=== PATIENT | male | born 1955 | race Caucasian/White ===

== ENCOUNTER 2020-10-10 00:49 | Emergency (ER) | payer BC, MEDICARE ==
[2020-10-10 00:54] VITALS: TEMP 97.7
[2020-10-10] MEDS ORDERED: SODIUM CHLORIDE 0.9% 1,000 ML IV STA (01:04)
[2020-10-10] MEDS ORDERED: ONDANSETRON 4 MG/2 ML VIAL IVP STA (01:04)
--- NOTE | 2020-10-10 01:06 | ED ---
Abdominal Pain HPI - General Chief Complaint: Abdominal Pain Stated Complaint: Abdominal Pain Source: patient, RN notes reviewed Mode of arrival: ambulatory Limitations: no limitations - History of Present Illness Initial Comments: Patient is a 65-year-old male presents to emergency department with sudden onset of left-sided abdominal pain. He noted that he did have a several episodes of dry heaving in the parking lot. He noted that he does not have any history of diverticulitis kidney stones or any other abdominal issues. He noted that the pain is tolerable currently and declined the need for any pain medication. He was well-appearing in no apparent distress or pain while sitting up in bed during exam and review. She denied any chest pain shortness of breath headache vomiting diarrhea constipation fever fatigue chills - Related Data Home Medications Medication Instructions Recorded Confirmed No Known Home Medications 04/03/15 04/03/15 Allergies Allergy/AdvReac Type Severity Reaction Status Date / Time No Known Allergies Allergy Verified 10/10/20 00:54 Review of Systems ROS Statement: Those systems with pertinent positive or pertinent negative responses have been documented in the HPI. ROS Other: All systems not noted in ROS Statement are negative. Past Medical History Past Medical History: No Reported History History of Any Multi-Drug Resistant Organisms: None Reported Additional Past Surgical History / Comment(s): vasectomy Past Psychological History: No Psychological Hx Reported Smoking Status: Never smoker Past Alcohol Use History: Daily Past Drug Use History: None Reported General Exam Limitations: no limitations General appearance: alert, in no apparent distress Head exam: Present: atraumatic, normocephalic, normal inspection Eye exam: Present: normal appearance, PERRL, EOMI. Absent: scleral icterus, conjunctival injection, periorbital swelling ENT exam: Present: normal exam, mucous membranes moist Neck exam: Present: normal inspection. Absent: tenderness, meningismus, lymphadenopathy Respiratory exam: Present: normal lung sounds bilaterally. Absent: respiratory distress, wheezes, rales, rhonchi, stridor Cardiovascular Exam: Present: regular rate, normal rhythm, normal heart sounds. Absent: systolic murmur, diastolic murmur, rubs, gallop, clicks GI/Abdominal exam: Present: soft, tenderness (Left lower quadrant), normal bowel sounds. Absent: distended, guarding, rebound, rigid Extremities exam: Present: normal inspection, full ROM, normal capillary refill. Absent: tenderness, pedal edema, joint swelling, calf tenderness Neurological exam: Present: alert, oriented X3, CN II-XII intact Psychiatric exam: Present: normal affect, normal mood Skin exam: Present: warm, dry, intact, normal color. Absent: rash Course Vital Signs 10/10/20 10/10/20 00:51 01:54 Temperature 97.7 F Pulse Rate 53 L 101 H Respiratory 20 18 Rate Blood Pressure 140/100 138/61 O2 Sat by Pulse 96 97 Oximetry Medical Decision Making - Medical Decision Making 65-year-old male complaining of left-sided abdominal pain abrupt onset. Labs, 1 L normal saline, 4 mg Zofran, CT of the abdomen and pelvis ordered. Patient was still nauseous and complaining of pain, 5 mg Compazine, 0.5 mg of hydromorphone ordered. Case discussed with Dr. Talbert, patient to discharge home with conservative management. - Lab Data Result diagrams: 10/10/20 01:14 10/10/20 01:14 Lab Results 10/10/20 10/10/20 10/10/20 Range/Units 01:14 01:14 01:14 WBC 5.9 (3.8-10.6) k/uL RBC 4.62 (4.30-5.90) m/uL Hgb 14.5 (13.0-17.5) gm/dL Hct 42.6 (39.0-53.0) % MCV 92.3 (80.0-100.0) fL MCH 31.4 (25.0-35.0) pg MCHC 34.1 (31.0-37.0) g/dL RDW 12.6 (11.5-15.5) % Plt Count 200 (150-450) k/uL MPV 8.3 Neutrophils % 28 % Lymphocytes % 57 % Monocytes % 8 % Eosinophils % 2 % Basophils % 1 % Neutrophils # 1.7 (1.3-7.7) k/uL Lymphocytes # 3.4 (1.0-4.8) k/uL Monocytes # 0.5 (0-1.0) k/uL Eosinophils # 0.1 (0-0.7) k/uL Basophils # 0.1 (0-0.2) k/uL Sodium 139 (137-145) mmol/L Potassium 3.7 (3.5-5.1) mmol/L Chloride 104 (98-107) mmol/L Carbon Dioxide 24 (22-30) mmol/L Anion Gap 11 mmol/L BUN 15 (9-20) mg/dL Creatinine 0.71 (0.66-1.25) mg/dL Est GFR (CKD-EPI)AfAm >90 (>60 ml/min/1.73 sqM) Est GFR (CKD-EPI)NonAf >90 (>60 ml/min/1.73 sqM) Glucose 93 (74-99) mg/dL Calcium 9.8 (8.4-10.2) mg/dL Total Bilirubin 0.6 (0.2-1.3) mg/dL AST 31 (17-59) U/L ALT 17 (4-49) U/L Alkaline Phosphatase 51 (38-126) U/L Total Protein 6.7 (6.3-8.2) g/dL Albumin 4.4 (3.5-5.0) g/dL Amylase 38 (30-110) U/L Lipase 129 (23-300) U/L Urine Color Yellow Urine Appearance Clear (Clear) Urine pH 6.0 (5.0-8.0) Ur Specific [place] 1.022 (1.001-1.035) Urine Protein Negative (Negative) Urine Glucose (UA) Negative (Negative) Urine Ketones Negative (Negative) Urine Blood Negative (Negative) Urine Nitrite Negative (Negative) Urine Bilirubin Negative (Negative) Urine Urobilinogen <2.0 (<2.0) mg/dL Ur Leukocyte Esterase Negative (Negative) - Radiology Data Radiology results: report reviewed, image reviewed CT of the abdomen and pelvis: 3 mm distal left ureteral stone noted at the left UVJ with proximal mild left hydroureteronephrosis. There is no evidence for bowel obstruction or definite focal bowel mucosal abnormality no free intra peritoneal fluid or pneumoperitoneum Disposition Clinical Impression: Nephrolithiasis Disposition: HOME SELF-CARE Condition: Stable Instructions (If sedation given, give patient instructions): Kidney Stones (ED) Additional Instructions: Please return to the Emergency Department if symptoms worsen or any other concerns. Increase oral fluid intake. Take Motrin every 6 hours as needed for pain control. Follow-up with primary care in 2-4 days. Is patient prescribed a controlled substance at d/c from ED?: No Referrals: Morales Lowery MD [Primary Care Provider] - 1-2 days Time of Disposition: 02:58
[2020-10-10] MEDS ORDERED: MORPHINE SULFATE 4 MG/ML SYRINGE IVP STA (01:16)
[2020-10-10 01:50] LABS: Basophils # (A) 0.1 k/uL (0-0.2); Basophils % (A) 1 %; Eosinophils # (A) 0.1 k/uL (0-0.7); Eosinophils % (A) 2 %; HCT 42.6 % (39.0-53.0); HGB 14.5 gm/dL (13.0-17.5); Lymphocytes # (A) 3.4 k/uL (1.0-4.8); Lymphocytes % (A) 57 %; MCH 31.4 pg (25.0-35.0); MCHC 34.1 g/dL (31.0-37.0); MCV 92.3 fL (80.0-100.0); Mean Platelet Volume 8.3; Monocytes # (A) 0.5 k/uL (0-1.0); Monocytes % (A) 8 %; Neutrophils # (A) 1.7 k/uL (1.3-7.7); Neutrophils % (A) 28 %; Platelet Count 200 k/uL (150-450); RBC 4.62 m/uL (4.30-5.90); RDW 12.6 % (11.5-15.5); WBC 5.9 k/uL (3.8-10.6)
[2020-10-10 01:57] LABS: ALT 17 U/L (4-49); AST 31 U/L (17-59); African American GFR (CKD) >90 (>60 ml/min/1.73 sqM); Albumin 4.4 g/dL (3.5-5.0); Alkaline Phosphatase 51 U/L (38-126); Amylase 38 U/L (30-110); Anion Gap 11 mmol/L; Blood Urea Nitrogen 15 mg/dL (9-20); Calcium 9.8 mg/dL (8.4-10.2); Carbon Dioxide 24 mmol/L (22-30); Chloride 104 mmol/L (98-107); Glucose 93 mg/dL (74-99); Lipase 129 U/L (23-300); Non-African American GFR(CKD) >90 (>60 ml/min/1.73 sqM); Potassium 3.7 mmol/L (3.5-5.1); Sodium 139 mmol/L (137-145); Total Bilirubin 0.6 mg/dL (0.2-1.3); Total Protein 6.7 g/dL (6.3-8.2)
[2020-10-10] MEDS ORDERED: HYDROmorphone 0.5 MG/0.5 ML SYRINGE IVP STA (02:01)
[2020-10-10] MEDS ORDERED: PROCHLORPERAZINE INJ 10 MG/2 ML VIAL IVP STA (02:01)
[2020-10-10 02:10] LABS: Appearance,Urine Clear (Clear); Bilirubin,Urine Negative (Negative); Blood,Urine Negative (Negative); Color,Urine Yellow; Glucose,Urine (UA) Negative (Negative); Ketones,Urine Negative (Negative); Leukocyte Esterase,Urine Negative (Negative); Nitrite,Urine Negative (Negative); Protein,Urine Negative (Negative); Specific Gravity,Urine 1.022 (1.001-1.035); Urobilinogen,Urine <2.0 mg/dL (<2.0)
[2020-10-10] MEDS ORDERED: diphenhydrAMINE 50 MG/ML 1 ML VIAL IVP STA (02:24)
[2020-10-10] MEDS ORDERED: methylPREDNISolone SOD SUCCI 125 MG/2 ML VIAL IV STA (02:24)
[2020-10-10] MEDS ORDERED: FAMOTIDINE 20 MG/2 ML VIAL IV STA (02:24)
--- NOTE | 2020-10-10 02:51 | CT ---
EXAM: CT Abdomen and Pelvis With Intravenous Contrast CLINICAL HISTORY: ITS.REASON CT Reason: abdominal pain TECHNIQUE: Axial computed tomography images of the abdomen and pelvis with intravenous contrast. CTDI is 13.37 mGy and DLP is 596 mGy-cm. This CT exam was performed using one or more of the following dose reduction techniques: automated exposure control, adjustment of the mA and/or kV according to patient size, and/or use of iterative reconstruction technique. COMPARISON: No relevant prior studies available. FINDINGS: Limitations: There is extensive respiratory artifact which degrades image quality throughout the examination. Lung bases: Unremarkable. No mass. No consolidation. ABDOMEN: Liver: The liver is unremarkable, accounting for artifact. Gallbladder and bile ducts: Detailed evaluation the gallbladder is limited secondary to significant artifact. No biliary dilatation. No calcified stones. Pancreas: The pancreas is grossly unremarkable, accounting for artifact. No ductal dilation. Spleen: Unremarkable. No splenomegaly. Adrenals: Unremarkable. No mass. Kidneys and ureters: 3 mm distal left ureteral stone noted at the left UVJ with proximal mild left hydroureteronephrosis. The kidneys demonstrate normal enhancement, accounting for artifact. Incidental subcentimeter nephrolithiasis in the midpole of the right kidney. Stomach and bowel: Accounting for limitations with respiratory artifact, there is no evidence for bowel obstruction or definite focal bowel mucosal abnormality. PELVIS: Appendix: Evaluation of the appendix is not possible on this examination secondary to artifact. Bladder: Unremarkable. No mass. Reproductive: Unremarkable as visualized. ABDOMEN and PELVIS: Intraperitoneal space: Unremarkable. No free air. No significant fluid collection. Bones/joints: No acute fracture. No dislocation. Soft tissues: Unremarkable. Vasculature: Unremarkable. No abdominal aortic aneurysm. Lymph nodes: Unremarkable. No enlarged lymph nodes. IMPRESSION: 1. 3 mm distal left ureteral stone noted at the left UVJ with proximal mild left hydroureteronephrosis. 2. Accounting for limitations with extensive respiratory artifact, there is no evidence for bowel obstruction or definite focal bowel mucosal abnormality. No free intraperitoneal fluid or pneumoperitoneum.
[2020-10-10 03:14] VITALS: BP 139/80; PULSE 62; RESP 16
== END 2020-10-10 03:13 | disposition home or self-care (01) ==
LOC: EC 00:49
DX: N20.0 Calculus of kidney (principal)
CPT/HCPCS: 36415; 80053; 82150; 83690; 85025; 81003; 74177; 99284; 96374; 96375; 96361; J2270; J1200; J0780; J2930; J2405; J1170; Q9967

== ENCOUNTER → 2021-11-13 | Outpatient (CLI) | payer BC ==
[2021-11-13 14:41] LABS: HCT 42.6 % (39.6-50.0); HGB 14.2 g/dL (13.0-17.0); MCH 32.2 pg (27.0-32.0); MCHC 33.3 g/dL (32.0-37.0); MCV 96.6 fL (80.0-97.0); Mean Platelet Volume 10.4 fL (9.5-12.2); NRBC Per 100 WBC 0 /100 WBCS (0.0-0.0); Platelet Count 207 X 10*3/uL (140-440); RBC 4.41 X 10*6/uL (4.40-5.60); RDW 12.3 % (11.5-14.5); WBC 3.57 X 10*3/uL (4.50-10.00)
[2021-11-13 17:06] LABS: ALT 109 U/L (10-49); AST 122 U/L (14-35); African American GFR (CKD) 116.3 (60.0-200.0); Albumin 4.8 g/dL (3.8-4.9); Albumin/Globulin Ratio 2.14 (1.60-3.17); Alkaline Phosphatase 47 U/L (41-126); BUN/Creat Ratio 24.32 Ratio (12.00-20.00); Blood Urea Nitrogen 16.2 mg/dL (9.0-27.0); Calcium 9.4 mg/dL (8.7-10.3); Carbon Dioxide 21.5 mmol/L (20.0-27.5); Chloride 101 mmol/L (96-109); Chol/HDL Ratio 2.37 Ratio; Globulin 2.2 g/dL (1.6-3.3); Glucose 79 mg/dL (70-110); LDL Cholesterol,Calculated 96.6 mg/dL (0.0-131.0); Non-African American GFR(CKD) 100.4 (60.0-200.0); Potassium 4.3 mmol/L (3.5-5.5); Sodium 139 mmol/L (135-145); VLDL Calculation 13.28 mg/dL (5.00-40.00)
== END | disposition home or self-care (01) ==
LOC: LABWHC1 09:10
PROVIDERS: ATTEND Family Medicine
DX: Z00.00 Encounter for general adult medical examination without abnormal findings (principal); N40.0 Benign prostatic hyperplasia without lower urinary tract symptoms; I73.9 Peripheral vascular disease, unspecified
CPT/HCPCS: 36415; 80053; 80061; 84153; 84443; 85027

== ENCOUNTER → 2021-11-21 | Outpatient (CLI) | payer BC | END | disposition home or self-care (01) | LOC: LABWHC1 08:11 | PROVIDERS: ATTEND Urology | DX: R97.20 Elevated prostate specific antigen [PSA] (principal) | CPT/HCPCS: 36415; 84153 ==

== ENCOUNTER → 2022-12-04 | Outpatient (CLI) | payer BC ==
--- NOTE | 2022-12-04 12:41 | CA ---
Exercise Stress Test Report Name: Rashaun Bain Exam Date: 12/04/2022 09:14 Exam Location: [place] Ht (in): 74 Wt (lb): 160 BSA: 1.98 Ordering Phys: Krystyna Lowery DO Referring Phys: Krystyna Lowery DO Technologist: Medardo Quinonez Age: 67 Gender: M : 1955 Procedure CPT: Indications: E78.5 HYPERLIPIDEMIA, UNSPECIFIED ICD-10 Codes: Patient History: ELEVATED CHOLESTEROL LEVELS, FAMILY HX OF HEART DISEASE, FORMER SMOKER - QUIT 20 YEARS (1 PPD X 10 YEARS) Medications: LIPITOR, PROSTATE HEALTH Meds past 24 hrs: Pretest Chest Pain: STRESS TEST Sumit Protocol Exercise Duration (min:sec): 06:[address] Depressions (mm): Angina Score: Thakur Score: Resting HR (bpm): 100 Peak HR (bpm): 151 Resting BP (mmHg): 145 / 80 Peak BP (mmHg): 185 / 56 MPHR: 153 Target HR: 130 % MPHR: 99 METS: 7.4 Total Dose: Peak Dose: Atropine: Double Product: 70556 BP Response: Stress Termination: TARGET HR REACHED/MAX EXERTION Stress Symptoms: NO SYMPTOMS Stress Summary: ECG ANALYSIS Resting ECG: Stress ECG: CONCLUSIONS Patient underwent exercise stress EKG with a Sumit protocol treadmill stress test. Patient exercised into Stage 2 for a total of 6 minutes and 15 seconds reaching a total of 7.4 METS. Patient's maximum heart rate was 151 which represented 98% age- predicted maximum heart rate. Stress EKG findings: At baseline patient's EKG showed normal sinus rhythm, normal axis, 0.[address] depressions in the inferior leads, poor R-wave progression. At peak exercise, EKG showed mild accentuation of ST depressions, minimal ST elevation in aVR. Conclusions: 1. Nonspecific stress EKG secondary baseline EKG abnormalities. Consider stress testing with imaging modality if clinically indicated. 2. Fair exercise capacity. Dr. Toby Marcos DO (Electronically Signed) Final Date: 04 Dec 2022 12:40
== END | disposition home or self-care (01) ==
LOC: RADNMMAIN 08:22
PROVIDERS: ATTEND Family Medicine
DX: E78.5 Hyperlipidemia, unspecified (principal); R94.31 Abnormal electrocardiogram [ECG] [EKG]
CPT/HCPCS: 93017

== ENCOUNTER → 2023-03-09 | Outpatient (CLI) | payer BC ==
--- NOTE | 2023-03-09 12:02 | CA ---
Exercise Nuclear Stress Test Report Name: Rashaun Bain Exam Date: 03/09/2023 09:28 Exam Location: [place] Stress Ht (in): 74 Wt (lb): 160 BSA: 1.98 Ordering Phys: Morales Lowery MD Referring Phys: ARNALDO, Technologist: Rashaun Benitez Age: 67 Gender: M : 1955 Procedure CPT: Indications: R94.31 ABNORMAL ELECTROCARDIOGRAM ICD-10 Codes: Patient History: Medications: Meds past 24 hrs: Pretest Chest Pain: STRESS TEST Sumit Protocol Exercise Duration (min:sec): 05:[address] Depressions (mm): Angina Score: Thakur Score: Resting HR (bpm): 91 Peak HR (bpm): 146 Resting BP (mmHg): 146 / 79 Peak BP (mmHg): 188 / 77 MPHR: 153 Target HR: 130 % MPHR: 95 METS: 7.1 Total Dose: Peak Dose: Atropine: Double Product: 59615 BP Response: Stress Termination: Reached target heart rate Stress Symptoms: SHORT OF BREATH, VERTIGO Stress Summary: ECG ANALYSIS Resting ECG: Normal sinus rhythm normal axis normal intervals with poor operative progression Stress ECG: Patient exercised on Sumit protocol for a total of 5 and half minutes achieving 85% of predicted maximal heart rate in the test was stopped secondary to shortness of breath and vertigo. There was [address] segment depression in inferolateral leads CONCLUSIONS Poor exercise tolerance Abnormal stress test by EKG criteria Dr. Mamadou Lemon MD (Electronically Signed) Final Date: 09 March 2023 12:01
--- NOTE | 2023-03-11 10:55 | NM ---
EXAMINATION TYPE: NM stress cardiolite complete DATE OF EXAM: 03/09/2023 COMPARISON: NONE HISTORY: Abnormal EKG TECHNIQUE: After the intravenous administration of 9.6 mCi Tc 99m Sestamibi - Cardiolite resting SPE CT images acquired 60 minutes post injection. At peak stress 24.3 mCi Tc 99m Sestamibi - Stress images obtained 30 minutes post injection The patient was stressed with Cardiolite. Patient achieved greater than 95% predicted maximum heart r ate. FINDINGS: No fixed defects are evident No reversible stress defects on Spect images Wall motion is normal Ejection fraction is calculated to be there is diminished radiotracer accumulation along the mid to d istal inferior wall and cardiac apex. This appears matched on resting and stress images. No reversibl e perfusion defects are evident. This area appears smaller on the polar maps. Ejection fraction is 74 % is normal. Wall motion appears normal %. IMPRESSION: 1. There appears to be a small fixed defect along the mid to inferior wall greatest at the cardiac ap ex. Portion of this can be attributed to cardiac thinning. Mild prior infarction be considered. 2. No stress-induced ischemic changes.
== END | disposition home or self-care (01) ==
LOC: RADNMMAIN 07:34
PROVIDERS: ATTEND Family Medicine
DX: R94.31 Abnormal electrocardiogram [ECG] [EKG] (principal)
CPT/HCPCS: 93017; 78452; A9500

== ENCOUNTER 2023-05-22 13:15 | Day surgery (SDC) | payer BC ==
[2023-05-20 14:11] VITALS: BMI 20.5
[2023-05-22] MEDS: LACTATED RINGERS 1,000 ML IV SCH ×3 (14:58→16:02)
[2023-05-22 15:01] VITALS: TEMP 96.6
[2023-05-22] MEDS ORDERED: PROPOFOL 10 MG/ML 20 ML VIAL IV ONE (15:47)
--- NOTE | 2023-05-22 16:02 | P.PCN ---
Date of Procedure: 05/22/23 Procedure(s) Performed: BRIEF HISTORY: Patient is a 67-year-old pleasant white male scheduled for an elective colonoscopy as a part of evaluation of positive cologuard/Screening for colon cancer PROCEDURE PERFORMED: Colonoscopy with snare polypectomy. PREOPERATIVE DIAGNOSIS: Positive cologuard/Screening for colon cancer. IV sedation per Anesthesia. PROCEDURE: After informed consent was obtained, the patient, was brought into the endoscopy unit. IV sedation was administered by Anesthesia under continuous monitoring. Digital rectal examination was normal. Initially the Olympus CF-160 flexible video colonoscope was then inserted in the rectum, gradually advanced into the cecum without any difficulty. Careful examination was performed as the scope was gradually being withdrawn. Ileocecal valve and the appendiceal orifice were visualized and appeared normal. Prep was excellent. Mucosa of the cecum had a 3 mm and 6 mm polyp that was removed by cold snare polypectomy. Rest of the, ascending colon, transverse colon, descending colon, sigmoid colon, and rectum appeared normal. Retroflexion was performed in the rectum and no lesions were seen. At her sigmoid diverticulosis. The patient tolerated the procedure well. IMPRESSION: 3 mm and 6 mm cecal polyp status post cold snare polypectomy Scattered sigmoid diverticulosis RECOMMENDATIONS: Findings of this examination were discussed with the patient as well as his family. He was advised to follow with the biopsy results. If the biopsy result adenoma he can have a repeat colonoscopy in 5 years..
[2023-05-22 16:24] VITALS: RESP 16
[2023-05-22 16:25] VITALS: PULSE 69
[2023-05-22 17:02] VITALS: BP 112/67
== END 2023-05-22 16:57 | disposition home or self-care (01) ==
LOC: ORWHC2ENDO 13:15
PROVIDERS: ATTEND Internal Medicine Gastroenterology
DX: D12.0 Benign neoplasm of cecum (principal); K57.30 Diverticulosis of large intestine without perforation or abscess without bleeding; E78.5 Hyperlipidemia, unspecified; F17.200 Nicotine dependence, unspecified, uncomplicated; Z79.899 Other long term (current) drug therapy
CPT/HCPCS: 88305; 45385; J2704